=== PATIENT | female | born 1985 | race Caucasian/White ===

== ENCOUNTER 2021-02-03 22:31 | Emergency (ER) | payer BC, OTHER ==
[~2021-02-03] VITALS: Ht 162.6 cm; Wt 74.8 kg
[~2021-02-03 22:31] MED LIST: PRILOSEC40 MG PO
[2021-02-03] MEDS ORDERED: FAMOTIDINE 20 MG/2 ML VIAL IV STA (22:40)
[2021-02-03] MEDS ORDERED: SODIUM CHLORIDE 0.9% 1000ML 1,000 ML IV STA (22:40)
[2021-02-03 23:03] LABS: BASOPHILS % 0.7 % (0.0-1.0); EOSINOPHILS # (AUTO) 0.1 (0.0-0.4); EOSINOPHILS % 1.8 % (0.0-6.0); HEMATOCRIT 41.4 % (34.2-44.1); HEMOGLOBIN 13.6 g/dL (12.0-16.0); LYMPHOCYTES # (AUTO) 2.6 (1.0-3.2); LYMPHOCYTES % 47.8 % (18.0-39.1); MEAN CORPUSCULAR HEMOGLOBIN 29.8 pg (28-32); MEAN CORPUSCULAR HGB CONC 32.9 g/dL (31-35); MEAN CORPUSCULAR VOLUME 90.8 fL (81-99); MONOCYTES # (AUTO) 0.5 (0.2-0.8); MONOCYTES % 8.2 % (4.4-11.3); NEUTROPHILS # (AUTO) 2.3 (2.1-6.9); NEUTROPHILS % 41.3 % (38.7-80.0); PLATELET COUNT 230 x10e3/uL (140-360); RED BLOOD COUNT 4.56 x10e6/uL (3.6-5.1); RED CELL DISTRIBUTION WIDTH 11.6 % (11.7-14.4)
[2021-02-03 23:05] LABS: BACTERIA,URINE FEW /HPF; CLARITY,URINE CLEAR (CLEAR); COLOR,URINE YELLOW (YELLOW); EPITHELIAL CELLS,URINE FEW /LPF; KETONES,URINE NEGATIVE (NEGATIVE); LEUKOCYTE ESTERASE ,URINE NEGATIVE (NEGATIVE); NITRITE,URINE NEGATIVE (NEGATIVE); PROTEIN,URINE DIPSTICK NEGATIVE (NEGATIVE); RBC,URINE 0-5 /HPF (0-5); URINE UROBILINOGEN 0.2 mg/dL (0.2 - 1); WBC,URINE (MAN) 0-5 /HPF (0-5)
[2021-02-03 23:22] LABS: ALANINE AMINOTRANSFERASE 17 IU/L (0-55); ALBUMIN 4.5 g/dL (3.5-5.0); ALBUMIN/GLOBULIN RATIO 1.4 (0.8-2.0); ALKALINE PHOSPHATASE 76 IU/L (40-150); ANION GAP 15.6 mmol/L (8-16); BLOOD UREA NITROGEN 12 mg/dL (7-26); BUN/CREATININE RATIO 14 (6-25); CALCIUM 9.2 mg/dL (8.4-10.2); CARBON DIOXIDE 25 mmol/L (22-29); CHLORIDE 103 mmol/L (98-107); CREATININE, SERUM 0.87 mg/dL (0.57-1.11); EST GLOMERULAR FILTRATION RATE > 60 ML/MIN (60-); GLUCOSE 86 mg/dL (74-118); LIPASE 62 U/L (8-78); POTASSIUM 3.6 mmol/L (3.5-5.1); SODIUM 140 mmol/L (136-145)
[2021-02-03] MEDS ORDERED: MORPHINE SULFATE INJ 4 MG/ML INJ 1ML IV STA (23:24)
[2021-02-04] MEDS ORDERED: PANTOPRAZOLE 40 MG 10ML VIAL IV STA (02:21)
[2021-02-04 02:54] VITALS: BP 110/85
[2021-02-04] MEDS ORDERED: SODIUM CHLORIDE 0.9% 50ML 50 ML ONE (04:11)
[2021-02-04] MEDS ORDERED: IOPAMIDOL 370 MG/ML 200 ML INFUS..BTL INJ ONE (04:11)
== END 2021-02-04 02:56 | disposition home or self-care (01) ==
LOC: ER 22:37
DX: R10.13 Epigastric pain (principal); R00.1 Bradycardia, unspecified; K21.9 Gastro-esophageal reflux disease without esophagitis; Z87.19 Personal history of other diseases of the digestive system
CPT/HCPCS: 36415; 74177; 80053; 81001; 81025; 83690; 85025; 93005; 99284; C9113; J2270; J7030; Q9967

== ENCOUNTER 2021-02-08 02:34 | Emergency (ER) | payer BC ==
[~2021-02-08] VITALS: Ht 162.6 cm; Wt 74.8 kg
[2021-02-08] MEDS ORDERED: PANTOPRAZOLE 40 MG 10ML VIAL IV STA (02:47)
[2021-02-08] MEDS ORDERED: LIDOCAINE VISC 2% SOLN 15 ML UDC PO ONE (03:00)
[2021-02-08] MEDS ORDERED: BELLADONNA ALK/PHENOBARBITAL 5 ML UDC PO ONE (03:00)
[2021-02-08] MEDS ORDERED: MAGNESIUM/ALUMINUM/SIMETHICONE 30 ML UDC PO ONE (03:00)
[2021-02-08 03:04] LABS: BASOPHILS % 0.4 % (0.0-1.0); EOSINOPHILS # (AUTO) 0.1 (0.0-0.4); HEMATOCRIT 39.1 % (34.2-44.1); HEMOGLOBIN 12.7 g/dL (12.0-16.0); LYMPHOCYTES # (AUTO) 1.8 (1.0-3.2); MEAN CORPUSCULAR HEMOGLOBIN 29.6 pg (28-32); MEAN CORPUSCULAR HGB CONC 32.5 g/dL (31-35); MEAN CORPUSCULAR VOLUME 91.1 fL (81-99); MONOCYTES # (AUTO) 0.5 (0.2-0.8); MONOCYTES % 8.3 % (4.4-11.3); NEUTROPHILS # (AUTO) 3.1 (2.1-6.9); NEUTROPHILS % 56.1 % (38.7-80.0); PLATELET COUNT 214 x10e3/uL (140-360); RED BLOOD COUNT 4.29 x10e6/uL (3.6-5.1); RED CELL DISTRIBUTION WIDTH 11.6 % (11.7-14.4)
[2021-02-08 03:06] LABS: AMPHETAMINES SCREEN,URINE NEGATIVE (NEGATIVE); BENZODIAZEPINES SCREEN,URINE NEGATIVE (NEGATIVE); CLARITY,URINE CLEAR (CLEAR); COLOR,URINE YELLOW (YELLOW); KETONES,URINE NEGATIVE (NEGATIVE); LEUKOCYTE ESTERASE ,URINE NEGATIVE (NEGATIVE); NITRITE,URINE NEGATIVE (NEGATIVE); PHENCYCLIDINE SCREEN,URINE NEGATIVE (NEGATIVE); PROTEIN,URINE DIPSTICK NEGATIVE (NEGATIVE); URINE UROBILINOGEN 0.2 mg/dL (0.2 - 1)
[2021-02-08 03:15] LABS: BACTERIA,URINE FEW /HPF; EPITHELIAL CELLS,URINE MODERATE /LPF; RBC,URINE 0-5 /HPF (0-5)
[2021-02-08 03:22] LABS: AMYLASE 67 U/L (25-125); LIPASE 55 U/L (8-78)
[2021-02-08 03:26] LABS: ALANINE AMINOTRANSFERASE 17 IU/L (0-55); ALBUMIN 4.1 g/dL (3.5-5.0); ALBUMIN/GLOBULIN RATIO 1.5 (0.8-2.0); ALKALINE PHOSPHATASE 71 IU/L (40-150); ANION GAP 13.9 mmol/L (8-16); BLOOD UREA NITROGEN 12 mg/dL (7-26); BUN/CREATININE RATIO 14 (6-25); CALCIUM 8.8 mg/dL (8.4-10.2); CARBON DIOXIDE 25 mmol/L (22-29); CHLORIDE 108 mmol/L (98-107); CREATINE KINASE 50 IU/L (29-168); CREATININE, SERUM 0.85 mg/dL (0.57-1.11); EST GLOMERULAR FILTRATION RATE > 60 ML/MIN (60-); GLUCOSE 103 mg/dL (74-118); POTASSIUM 3.9 mmol/L (3.5-5.1); SODIUM 143 mmol/L (136-145)
[2021-02-08] MEDS ORDERED: KETOROLAC TROMETHAMINE 30 MG/ML VIAL IV STA (04:35)
[2021-02-08] MEDS ORDERED: DICYCLOMINE HCL 20 MG/2 ML VIAL IM ONE (05:00)
[2021-02-08 05:07] VITALS: BP 119/65
== END 2021-02-08 05:12 | disposition home or self-care (01) ==
LOC: ER 02:44
DX: R10.13 Epigastric pain (principal); K80.80 Other cholelithiasis without obstruction; R94.31 Abnormal electrocardiogram [ECG] [EKG]
CPT/HCPCS: 36415; 71045; 76705; 80053; 80307; 81001; 81025; 82150; 82550; 82553; 83690; 84484; 85025; 93005; 99284; C9113; J0500; J1885

== ENCOUNTER 2021-04-04 17:25 | Emergency (ER) | payer BC ==
[~2021-04-04] VITALS: Ht 152.4 cm; Wt 59.9 kg
[2021-04-04] MEDS ORDERED: CASIRIVIMAB/IMDEVIMAB 10 ML VIAL IV ONE (17:45)
[2021-04-04] MEDS ORDERED: CASIRIVIMAB/IMDEVIMAB 600 ML in SODIUM CHLORIDE 0.9% 100 ML IV ONE (18:00)
[2021-04-04] MEDS ORDERED: ONDANSETRON ODT4 MG PO (19:51)
== END 2021-04-04 20:17 | disposition home or self-care (01) ==
LOC: ER 17:45
DX: U07.1 COVID-19 (principal); R05 Cough; R51.9 Headache, unspecified; R53.83 Other fatigue; R09.81 Nasal congestion; K21.9 Gastro-esophageal reflux disease without esophagitis; E03.9 Hypothyroidism, unspecified; Z87.11 Personal history of peptic ulcer disease; Z79.899 Other long term (current) drug therapy
CPT/HCPCS: 99283

== ENCOUNTER 2025-02-10 21:08 | Emergency (ER) | payer BC ==
[~2025-02-10] VITALS: Ht 162.6 cm; Wt 59.9 kg
[~2025-02-10 21:08] MED LIST changes: +ONDANSETRON ODT4 MG PO
[2025-02-10 21:20] VITALS: RESP 17; TEMP 98.8
[2025-02-10] MEDS: ONDANSETRON HCL 4 MG ORAL DISINTEGRATING TAB PO STA (22:26)
[2025-02-10] MEDS: ACETAMINOPHEN 325 MG TAB PO STA (22:27)
[2025-02-10 23:00] VITALS: PULSE 65
[2025-02-11 01:01] VITALS: BP 105/71; O2SAT 98
== END 2025-02-10 23:31 | disposition home or self-care (01) ==
LOC: ER 21:13
DX: S00.83XA Contusion of other part of head, initial encounter (principal); R51.9 Headache, unspecified; R11.0 Nausea; W22.09XA Striking against other stationary object, initial encounter; Y92.89 Other specified places as the place of occurrence of the external cause; E03.9 Hypothyroidism, unspecified; K21.9 Gastro-esophageal reflux disease without esophagitis; Z87.19 Personal history of other diseases of the digestive system
CPT/HCPCS: 70450; 99283; Q0162